=== PATIENT | male | born 1985 | race Caucasian/White ===

== ENCOUNTER 2017-09-01 09:03 | Emergency (ER) | payer BC ==
--- NOTE | 2017-09-01 09:21 | DR.GENAD ---
HPI - PCP Primary Care Physician: NFD - HPI Comment HPI Comment: MOVEMENT INCREASE PAIN. NO TRAUMA. PAIN IS HEAVY PRESURE AND NON RADIATING. ASSOCIATED WITH WEAKNESS AND SOB. NO FEVER. - Complaint/Symptoms Chief Complaint Doctors Comments: LEFT SIDED CHEST PAIN TIMES 3 DAYS. Chief Complaint:: PT. C/O LEFT CHEST WALL PAIN THAT STARTED ON FRIDAY. PAIN WORSENS UPON MOVEMENT. - Nurses notes reviewed Nurses Notes Review: Yes - Source History Provided: Patient - Mode of Arrival Mode of Arrival: Ambulatory - Timing Onset of Chief Complaint: 08/29/17 Came on: Suddenly - Duration Duration: Constant Duration: Days - Severity Severity: Moderate PMH - PMH Past Medical History: Yes Past Medical History: Asthma, Hypertension Past Surgical History: No Surgical History: No History - Family History History of Family Medical Conditions: No - Social History Does patient currently use any type of tobacco product: Yes Have you used tobacco products in the last 12 months: Yes Type of Tobacco Use: Cigarettes Does any household member use tobacco: No Alcohol Use: Occasionally Do you use any recreational Drugs:: No Lives With: Family Lives Where: Home - infectious screening In the last 2 months have you had wt loss of >10#?: NO Have you had fever, night sweats or hemotysis?: No Have you traveled outside the country in the last 6 months?: No Isolation: Standard ROS - Review of Systems Constitutional: Weakness, Fatigue. negative: Chills, Fever Eyes: No Symptoms Reported. negative: Eye Pain, Discharge ENTM: No Symptoms Reported. negative: Ear Pain, Nose Discharge, Nose Congestion , Throat Pain Respiratoy: Short of Breath. negative: Productive Cough, Wheezing, Hemoptysis Cardiovascular: Chest Pain Gastrointestinal/Abdominal: No Symptoms Reported Genitourinary: No Symptoms Reported Neurological: Weakness Musculoskeletal: Muscle Pain Integumentary: No Symptoms Reported Hematologic/Lymphatic: No Symptoms Reported Endocrine: No Symptoms Reported All Other Systems: Reviewed and Negative PE - Vital Signs Vitals: Temperature 98.7 F Pulse Rate 86 Respiratory Rate 17 Blood Pressure [Left Arm] 172/106 Blood Pressure 178/112 O2 Sat by Pulse Oximetry 99 - General Limitations: No Limitations General Appearance: Alert - Head Head Exam: Normal Inspection - Eyes Eye exam: Normal Appearance - ENT ENT Exam: Normal External Ear Exam External Ear Exam: Normal External Inspection TM/Canal Exam: Bilateral Normal Nose Exam: Normal Nose Exam Mouth Exam: Normal Inspection Throat Exam: Normal Inspection - Neck Neck Exam: Trachea Midline - Chest Chest Inspection: Symmetric Chest Wall Rise. negative: Tenderness - Respiratory Respiratory Exam: Normal Lung Sounds Bilat. negative: Chest Wall Tenderness Respiratory Exam: Bilateral Clear to Auscultation - Cardiovascular Cardiovascular Exam: Regular Rate, Normal Rhythm, Normal Heart Sounds - Abdominal Exam Abdominal Exam: Normal Bowel Sounds, Soft. negative: Tenderness - Extremities Extremities Exam: Normal Inspection - Back Back Exam: Normal Inspection - Neurologic Neurological Exam: Alert, Oriented X3 - Psychiatric Psychiatric Exam: Normal Affect, Normal Mood - Skin Skin Exam: Normal Color MDM - Differential Diagnosis Differential Diagnosis: CHEST PAIN, ID, PNEUMONIA, CHEST WALL PAIN, MUSCULOSKELETAL PAIN Course - Treatment Treatment: SEE ORDERS. - Education/Counseling Education/Counseling: Patient, Education Educated On: Diagnosis, Needs for Follow Up ROR - Labs Reviewed Laboratory Results Reviewed?: Yes Result Diagrams: 09/01/17 09:36 09/01/17 09:36 Laboratory: WBC 6.9 X10^3/uL (3.6-10.0) 09/01/17 09:36 RBC 5.58 X10^6/uL (4.7-6.0) 09/01/17 09:36 Hgb 14.9 g/dL (13.5-18.0) 09/01/17 09:36 Hct 45.0 % (42.0-54.0) 09/01/17 09:36 MCV 80.7 fL (80.0-100.0) 09/01/17 09:36 MCH 26.7 pg (27.0-34.0) L 09/01/17 09:36 MCHC 33.1 g/dL (33.0-35.0) 09/01/17 09:36 RDW 15.5 % (11.6-16.5) 09/01/17 09:36 Plt Count 238 X10^3/uL (150.0-450.0) 09/01/17 09:36 MPV 8.8 fL (7.4-11.0) 09/01/17 09:36 Neut % 52.4 % (42.0-75.0) 09/01/17 09:36 Lymph % 32.6 % (21.0-51.0) 09/01/17 09:36 [place] % 12.1 % (0.0-13.0) 09/01/17 09:36 Eos % 2.3 % (0.9-2.9) 09/01/17 09:36 Baso % 0.6 % (0.2-1.0) 09/01/17 09:36 Neut # 3.6 x10^3/uL (2.2-4.8) 09/01/17 09:36 Lymph # 2.2 X10^3/uL (1.3-2.9) 09/01/17 09:36 [place] # 0.8 x10^3/uL (0.3-0.8) 09/01/17 09:36 Eos # 0.2 x10^3/uL (0.0-0.2) 09/01/17 09:36 Baso # 0.0 X10^3/uL (0.0-0.1) 09/01/17 09:36 Absolute Nucleated RBC 0.1 /100WBC 09/01/17 09:36 D-Dimer < 100 ng/mL (0-400) 09/01/17 09:36 Sodium 140 mmol/L (136-145) 09/01/17 09:36 Corrected Sodium TNP 09/01/17 09:36 Potassium 4.0 mmol/L (3.5-5.1) 09/01/17 09:36 Chloride 104 mmol/L (98-107) 09/01/17 09:36 Carbon Dioxide 26.6 mmol/L (21-32) 09/01/17 09:36 BUN 14 mg/dL (7-18) 09/01/17 09:36 Creatinine 1.07 mg/dL (0.70-1.30) 09/01/17 09:36 Est GFR (MDRD) Af Amer > 60 (>60) 09/01/17 09:36 Est GFR (MDRD) Non-Af > 60 (>60) 09/01/17 09:36 Glucose 91 mg/dL (65-99) 09/01/17 09:36 Calcium 8.6 mg/dL (8.5-10.1) 09/01/17 09:36 Corrected Calcium TNP 09/01/17 09:36 Total Bilirubin 0.30 mg/dL (0.2-1.0) 09/01/17 09:36 AST 21 Units/L (15-37) 09/01/17 09:36 ALT 40 Units/L (12-78) 09/01/17 09:36 Alkaline Phosphatase 79 Units/L (46-116) 09/01/17 09:36 Creatine Kinase 161 Units/L (39-308) 09/01/17 09:36 CK-MB (CK-2) 2.0 ng/mL (0-4.0) 09/01/17 09:36 CK/CKMB % Calc 1.2 % (<4) 09/01/17 09:36 Troponin I < 0.02 ng/mL (0-1.5) 09/01/17 09:36 Total Protein 7.7 g/dL (6.4-8.2) 09/01/17 09:36 Albumin 3.6 g/dL (3.4-5.0) 09/01/17 09:36 Globulin 4.1 g/dL (2.5-4.5) 09/01/17 09:36 Albumin/Globulin Ratio 0.9 Ratio (1.1-2.1) L 09/01/17 09:36 Specimen Type Clean catch urine 09/01/17 10:26 Urine Color Yellow (YELLOW) 09/01/17 10:26 Urine Appearance Slightly hazy (CLEAR) 09/01/17 10:26 Urine pH 5.0 (5.0 - 8.0) 09/01/17 10:26 Ur Specific [place] 1.020 (1.000-1.030) 09/01/17 10:26 Urine Protein Negative (NEGATIVE) 09/01/17 10:26 Urine Glucose (UA) Negative (NEGATIVE) 09/01/17 10:26 Urine Ketones Negative (NEGATIVE) 09/01/17 10:26 Urine Occult Blood 1+ (NEGATIVE) 09/01/17 10:26 Urine Nitrite Negative (NEGATIVE) 09/01/17 10:26 Urine Bilirubin Negative (NEGATIVE) 09/01/17 10:26 Urine Urobilinogen Normal (NORMAL) 09/01/17 10:26 Ur Leukocyte Esterase Negative (NEGATIVE) 09/01/17 10:26 Urine RBC 0-1 /HPF (NEGATIVE) 09/01/17 10:26 Urine WBC 0-3 /HPF (NEGATIVE) 09/01/17 10:26 Ur Squamous Epith Cells Few /HPF (NEGATIVE) 09/01/17 10:26 Urine Bacteria Trace /HPF (NEGATIVE) 09/01/17 10:26 Ur Culture Indicated? No/not indicated 09/01/17 10:26 H. pylori IgG Antibody Positive (NEGATIVE) A 09/01/17 09:36 - XRAY XRAY Interpreted by: Radiologist XRAY Findings: REPORT DISCUSS WITH PATIENT. - EKG Rhythm: NSR (EKG NOTED.) - Diagnosis Discharge Problem: Helicobacter pylori ab+ Chest pain Qualifiers: Chest pain type: unspecified Qualified Code(s): R07.9 - Chest pain, unspecified Hypertension Qualifiers: Hypertension type: essential hypertension Qualified Code(s): I10 - Essential ( primary) hypertension - Discharge Plan Disposition: HOME, SELF-CARE Condition: Stable Prescriptions: Clonidine HCl [CATAPRES 0.1 MG TAB *] 0.1 mg PO BID #60 tab Cyclobenzaprine HCl [FLEXERIL 10 MG *] 10 mg PO TID #20 tab Ibuprofen [MOTRIN TAB 800 MG *] 800 mg PO Q8H PRN #20 tab PRN Reason: Pain/Inflammation Lansoprazole/Amoxiciln/Clarith [PrevPac 14-day pack] 1 dose PO BID #1 pkg - Follow ups/Referrals Follow ups/Referrals: NFD,None [Primary Care Provider] - 3 days SHEILA FIELDS [STAFF PHYSICIAN] - 3 days - Instructions Instructions: Hypertension, [id number], Helicobacter Pylori Antibodies Test, Chest Pain Observation Additional Instructions: RETURN TO ED IF WORSE.
[2017-09-01 09:47] LABS: BASOPHILS % (AUTO) 0.6 % (0.2-1.0); EOSINOPHILS # (AUTO) 0.2 x10^3/uL (0.0-0.2); EOSINOPHILS % (AUTO) 2.3 % (0.9-2.9); HEMOGLOBIN 14.9 g/dL (13.5-18.0); LYMPHOCYTES # (AUTO) 2.2 X10^3/uL (1.3-2.9); LYMPHOCYTES % (AUTO) 32.6 % (21.0-51.0); MEAN CORPUSCULAR HEMOGLOBIN 26.7 pg (27.0-34.0); MEAN CORPUSCULAR HGB CONC 33.1 g/dL (33.0-35.0); MEAN CORPUSCULAR VOLUME 80.7 fL (80.0-100.0); MEAN PLATELET VOLUME 8.8 fL (7.4-11.0); MONOCYTES # (AUTO) 0.8 x10^3/uL (0.3-0.8); MONOCYTES % (AUTO) 12.1 % (0.0-13.0); NEUTROPHILS # (AUTO) 3.6 x10^3/uL (2.2-4.8); NEUTROPHILS % (AUTO) 52.4 % (42.0-75.0); PLATELET COUNT 238 X10^3/uL (150.0-450.0); RED BLOOD COUNT 5.58 X10^6/uL (4.7-6.0); RED CELL DISTRIBUTION WIDTH 15.5 % (11.6-16.5); WHITE BLOOD COUNT 6.9 X10^3/uL (3.6-10.0)
--- NOTE | 2017-09-01 10:05 | RAD ---
Examination: Chest, PA and lateral views History: Left side chest pain Findings: Normal heart size with clear lungs and pleural spaces. Impression: No acute significant chest findings. Reported By:
[2017-09-01] MEDS ORDERED: CATAPRES TAB 0.1 MG ONE (10:27)
[2017-09-01 10:28] LABS: BLOOD UREA NITROGEN 14 mg/dL (7-18); CALCIUM 8.6 mg/dL (8.5-10.1); CARBON DIOXIDE 26.6 mmol/L (21-32); CHLORIDE 104 mmol/L (98-107); CREATININE 1.07 mg/dL (0.70-1.30); SODIUM 140 mmol/L (136-145); TROPONIN I < 0.02 ng/mL (0-1.5); eGFR BLACK RACES > 60 (>60); eGFR NON BLACK RACES > 60 (>60)
[2017-09-01 10:32] LABS: ALANINE AMINOTRANSFERASE 40 Units/L (12-78); ALBUMIN 3.6 g/dL (3.4-5.0); ALKALINE PHOSPHATASE 79 Units/L (46-116); ASPARTATE AMINO TRANSFERASE 21 Units/L (15-37); CKMB % 1.2 % (<4); CREATINE KINASE 161 Units/L (39-308); TOTAL PROTEIN 7.7 g/dL (6.4-8.2)
[2017-09-01] MEDS ORDERED: CATAPRES TAB 0.1 MG PO ONE (10:36)
[2017-09-01 10:37] LABS: BILIRUBIN,URINE NEGATIVE (NEGATIVE); BLOOD/HEMOGLOBIN,URINE 1+ (NEGATIVE); GLUCOSE, URINE NEGATIVE (NEGATIVE); KETONES,URINE NEGATIVE (NEGATIVE); LEUKOCYTE ESTERASE ,URINE NEGATIVE (NEGATIVE); NITRITES,URINE NEGATIVE (NEGATIVE); PROTEIN,URINE NEGATIVE (NEGATIVE); UROBILINOGEN,URINE NORMAL (NORMAL)
[2017-09-01 10:46] LABS: APPEARANCE,URINE SLIGHTLY HAZY (CLEAR); BACTERIA,URINE TRACE /HPF (NEGATIVE); COLOR,URINE YELLOW (YELLOW); RBC,URINE 0-1 /HPF (NEGATIVE); SQUAMOUS EPITHELIAL CELL,UR FEW /HPF (NEGATIVE)
[2017-09-01 10:56] VITALS: BP 172/106
[2017-09-01] MEDS ORDERED: TORADOL 60 MG VIAL IM ONE (10:58)
[2017-09-01] MEDS ORDERED: TORADOL 60 MG VIAL ONE (11:00)
== END 2017-09-01 11:20 | disposition home or self-care (01) ==
LOC: ER 09:09
DX: R07.89 Other chest pain (principal); B96.81 Helicobacter pylori [H. pylori] as the cause of diseases classified elsewhere; I10 Essential (primary) hypertension
CPT/HCPCS: 36415; 71046; 80053; 81001; 82550; 82553; 84484; 85025; 85378; 86677; 93005; 93010; 96372; 99282; 99283; J1885

== ENCOUNTER → 2017-09-03 | Outpatient (CLI) | payer BC ==
[2017-09-01 10:56] VITALS: BP 172/106
[~2017-09-03] MED LIST: SALINE 3% 15 ML NEB TX NEB ONE; SALINE 3% 15 ML NEB TX ONE
--- NOTE | 2017-09-03 16:15 | RAD ---
HISTORY: Cough, fever Study: Chest PA and lateral Comparison: 09/01/2017 Findings: The heart is within normal limits in size. The step[place] are normal. The lungs are mildly hypo inflated. T here has been interval development of right basilar subsegmental atelectasis since the prior examinat ion. No definite pleural effusion is identified. The remainder of the lung odonnell are clear. IMPRESSION: Interval development of subsegmental atelectasis in the right lung base when compared with the prior examination Reported By:
[2017-09-03 16:36] LABS: BASOPHILS # (AUTO) 0.1 X10^3/uL (0.0-0.1); EOSINOPHILS # (AUTO) 0.2 x10^3/uL (0.0-0.2); EOSINOPHILS % (AUTO) 1.5 % (0.9-2.9); HEMATOCRIT 42.9 % (42.0-54.0); HEMOGLOBIN 14.4 g/dL (13.5-18.0); LYMPHOCYTES # (AUTO) 0.9 X10^3/uL (1.3-2.9); LYMPHOCYTES % (AUTO) 9.4 % (21.0-51.0); MEAN CORPUSCULAR HEMOGLOBIN 26.9 pg (27.0-34.0); MEAN CORPUSCULAR HGB CONC 33.7 g/dL (33.0-35.0); MEAN CORPUSCULAR VOLUME 79.9 fL (80.0-100.0); MEAN PLATELET VOLUME 8.9 fL (7.4-11.0); MONOCYTES # (AUTO) 1.7 x10^3/uL (0.3-0.8); MONOCYTES % (AUTO) 16.9 % (0.0-13.0); NEUTROPHILS % (AUTO) 71.2 % (42.0-75.0); PLATELET COUNT 228 X10^3/uL (150.0-450.0); RED BLOOD COUNT 5.37 X10^6/uL (4.7-6.0); RED CELL DISTRIBUTION WIDTH 15.2 % (11.6-16.5); WHITE BLOOD COUNT 9.8 X10^3/uL (3.6-10.0)
[2017-09-03 17:09] LABS: ERYTHROCYTE SEDIMENTATION RATE 58 MM/HOUR (0-15)
[2017-09-03 17:14] LABS: ALANINE AMINOTRANSFERASE 37 Units/L (12-78); ALBUMIN 3.6 g/dL (3.4-5.0); ALKALINE PHOSPHATASE 54 Units/L (46-116); ASPARTATE AMINO TRANSFERASE 15 Units/L (15-37); BLOOD UREA NITROGEN 15 mg/dL (7-18); CALCIUM 8.6 mg/dL (8.5-10.1); CHLORIDE 101 mmol/L (98-107); CREATININE 1.11 mg/dL (0.70-1.30); SODIUM 137 mmol/L (136-145); TOTAL PROTEIN 7.8 g/dL (6.4-8.2); eGFR BLACK RACES > 60 (>60); eGFR NON BLACK RACES > 60 (>60)
== END ==
LOC: LAB 15:53
PROVIDERS: ATTEND Nurse Practitioner Family
DX: R05 Cough (principal); R50.9 Fever, unspecified
CPT/HCPCS: 36415; 71046; 80053; 85025; 85652; 86140; 87040; 87070; 87205; 94640